=== PATIENT | female | born 2000 ===

== ENCOUNTER → 2020-11-02 08:49 | Outpatient (CLI) | payer OTHER | END | disposition home or self-care (01) | LOC: LAB 08:49 | PROVIDERS: ATTEND Obstetrics & Gynecology | DX: Z34.82 Encounter for supervision of other normal pregnancy, second trimester (principal) ==

== ENCOUNTER 2020-12-02 20:09 | Emergency (ER) | payer OTHER ==
[~2020-12-02] VITALS: Ht 149.9 cm; Wt 64.4 kg
[2020-12-02] MEDS ORDERED: PRENATABS RX T1 EACH PO (20:19)
[2020-12-03] MEDS ORDERED: PEPCID40 MG PO (01:28)
[2020-12-03] MEDS ORDERED: ZOFRAN4 MG PO (01:28)
== END 2020-12-03 01:41 | disposition home or self-care (01) ==
LOC: ER 20:09
DX: K29.70 Gastritis, unspecified, without bleeding (principal)

== ENCOUNTER 2021-01-30 08:03 | Outpatient (CLI) | payer OTHER ==
[~2021-01-30 08:03] MED LIST: PEPCID40 MG PO; PRENATABS RX T1 EACH PO; ZOFRAN4 MG PO
== END 2021-01-30 10:17 | disposition home or self-care (01) ==
LOC: LAB 08:03
PROVIDERS: ATTEND Obstetrics & Gynecology
DX: Z34.83 Encounter for supervision of other normal pregnancy, third trimester (principal)

== ENCOUNTER 2021-04-07 10:02 | Inpatient (IN) | payer OTHER ==
[~2021-04-07] VITALS: Ht 149.9 cm; Wt 77.6 kg
== END 2021-04-09 17:27 | disposition home or self-care (01) | DRG 807 ==
LOC: LDR 10:02 → OB/GYN 10:02
PROVIDERS: ADMIT Obstetrics & Gynecology; ATTEND Obstetrics & Gynecology
PROC: 10E0XZZ Delivery of Products of Conception, External Approach (ICD-10-PCS; principal; 2021-04-07)
PROC: 10907ZC Drainage of Amniotic Fluid, Therapeutic from Products of Conception, Via Natural or Artificial Opening (ICD-10-PCS; 2021-04-07)
PROC: 4A1HXFZ Monitoring of Products of Conception, Cardiac Rhythm, External Approach (ICD-10-PCS; 2021-04-07)
DX: O80 Encounter for full-term uncomplicated delivery (principal); Z37.0 Single live birth; Z3A.38 38 weeks gestation of pregnancy; Z20.822 Contact with and (suspected) exposure to COVID-19